=== PATIENT | male | born 1975 | race African-American/Black ===

== ENCOUNTER 2020-03-25 01:13 | Emergency (ER) | payer BC ==
[2020-03-25 01:22] VITALS: BP 106/78; PULSE 78; TEMP 98.6; BMI 25.1
--- NOTE | 2020-03-25 02:11 | PDOC ---
History of Present Illness - General Chief Complaint: Syncope/Near Syncope Stated Complaint: FALL Time Seen by Provider: 03/25/20 02:11 - History of Present Illness Initial Comments: 03/25/20 02:34 pt presents to the ED after syncope. As per the patient, he was drinking and smoking weed after not eating or drinking all day. Now feels well and denies complaints. Patient is resistant to further work up and is asking to leave AMA. Denies fever, nausea or vomiting, chest pain or shortness of breath. States that he felt lightheaded before he passed out. 03/25/20 02:37 03/25/20 02:37 Past History - Medical History Allergies/Adverse Reactions: Allergies Allergy/AdvReac Type Severity Reaction Status Date / Time No Allergy Information Allergy Verified 03/25/20 01:34 Available Home Medications: Ambulatory Orders NK [No Known Home Medication] 03/25/20 COPD: No - Psycho-Social/Smoking History Smoking History: Never smoked Have you smoked in the past 12 months: No Information on smoking cessation initiated: No - Substance Abuse Hx (Audit-C & DAST Scrn) How often the patient has a drink containing alcohol: Monthly or less Number of drinks the patient has on a typical day: 1 or 2 How often the patient has six or more drinks on one occasion: Never Score: In Men: 4 or > Positive; In Women: 3 or > Positive: 1 Screen Result (Pos requires Nsg. Audit-10AR): Negative In the last yr the pt used illegal drug/Rx for NonMed reason: Yes Score: Yes response is considered Positive: 1 Screen Result (Positive result requires Nsg. DAST-10): Positive Review of Systems - Review of Systems Able to Perform ROS?: Yes Is the patient limited Ethiopian proficient: No Constitutional: No: Symptoms Reported, See HPI, Chills, Diaphoresis, Fever, Loss of Appetite, Malaise, Night Sweats, Weakness, Weight Stable, Unintentional Wgt. Loss, Unexplained wgt Loss, Other HEENTM: No: Symptoms Reported, See HPI, Eye Pain, Blurred Vision, Tearing, Recent change in vision, Double Vision, Cataracts, Ear Pain, Ocular Prothesis, Ear Discharge, Nose Pain, Nose Congestion, Tinnitus, Nose Bleeding, Hearing Loss, Throat Pain, Throat Swelling, Mouth Pain, Dental Problems, Difficulty Swallowing, Mouth Swelling, Other Respiratory: No: Symptoms reported, See HPI, Cough, Orthopnea, Shortness of Breath, SOB with Exertion, SOB at Rest, Stridor, Wheezing, Productive cough, Hemoptysis, Other Cardiac (ROS): Yes: Syncope. No: Symptoms Reported, See HPI, Chest Pain, Edema, Irregular Heart Rate, Lightheadedness, Palpitations, Chest Tightness, Other ABD/GI: No: Symptoms Reported, See HPI, Abdominal Distended, Abd. Pain w/ defecation, Blood Streaked Bowels, Constipated, Diarrhea, Difficulty Swallowing, Nausea, Poor Appetite, Poor Fluid Intake, Rectal Bleeding, Vomiting, Indigestion, Abdominal cramping, Tarry Stools, Other : No: Symptoms Reported, See HPI, Burning, Dysuria, Discharge, Frequency, Flank Pain, Hematuria, Incontinence, Pain, Urgency, Testicular Mass, Testicular Swelling, Lesions, Testicular Pain, Other *Physical Exam - Vital Signs Last Vital Signs Temp Pulse Resp BP Pulse Ox 98.6 F 78 20 106/78 97 03/25/20 01:17 03/25/20 01:17 03/25/20 01:17 03/25/20 01:17 03/25/20 01:17 - Physical Exam 03/25/20 02:38 Gen: alert, NAD HEENT: normocephalic. + 2 cm laceration to occiput without active bleeding. Cv: rrr no m/r/g Pulm: CTA b/l Abdomen: soft, non tender, non distended without guarding or rebound. Ext: no tenderness or deformity. Neuro: alert and oriented and in no acute distress. CN grossly intact. Ambulatory in the ED with normal gait. Medical Decision Making - Medical Decision Making 03/25/20 02:40 Pt presents to the ED complaining of syncope. Plan was for CT head to rule out intracranial injury, labs and EKG to rule out ACS or electrolyte disturbance, a nd IV hydration. patient refusing any medical care, including laceration repair. He understands the risk of SC, intracranial bleed, electrolyte disturbance and is choosing to leave AMA. Will return for worsening symptoms. Discharge - Discharge Information Problems reviewed: Yes Clinical Impression/Diagnosis: Syncope Qualifiers: Syncope type: unspecified Qualified Code(s): R55 - Syncope and collapse Condition: Good Disposition: AGAINST MEDICAL ADVICE - Admission No - Follow up/Referral Referrals: ON STAFF,NOT [Primary Care Provider] - - Patient Discharge Instructions Patient Printed Discharge Instructions: DI for Syncope in Adults (Fainting) - Post Discharge Activity
== END 2020-03-25 02:36 | disposition left against medical advice (07) ==
LOC: JER 01:13
DX: R55 Syncope and collapse (principal)
CPT/HCPCS: 99283-25